=== PATIENT | female | born 1935 | race Caucasian/White ===

== ENCOUNTER 2018-03-02 11:30 | Emergency (ER) | payer MEDICARE, OTHER ==
[~2018-03-02] VITALS: Ht 149.9 cm; Wt 47.0 kg
[2018-03-02] MEDS ORDERED: OXYC-145 PO (14:32)
[2018-03-02 14:41] VITALS: BP 132/82
== END 2018-03-02 14:43 | disposition home or self-care (01) ==
LOC: ER 11:30
DX: M54.16 Radiculopathy, lumbar region (principal); Z86.73 Personal history of transient ischemic attack (TIA), and cerebral infarction without residual deficits; G89.29 Other chronic pain; Z88.0 Allergy status to penicillin; Z88.8 Allergy status to other drugs, medicaments and biological substances
CPT/HCPCS: 72100; 73502; 99284

== ENCOUNTER 2020-03-24 01:59 | Emergency (ER) | payer MEDICARE, OTHER ==
[~2020-03-24] VITALS: Ht 149.9 cm; Wt 45.8 kg
[~2020-03-24 01:59] MED LIST: OXYC-145 PO
--- NOTE | 2020-03-24 02:16 | NUR ---
PT WENT STRAIGHT TO CT FROM TRIAGE
[2020-03-24] MEDS ORDERED: TETanus/Pertussis (Acell)/Diphther VAC/PF (Tdap-Adult) 0.5ml syringe IMVAC ONE (02:30)
[2020-03-24] MEDS ORDERED: LIDOcaine 1% W/epiNEPHrine 1:200,000 10ml vial IJ ONE (02:30)
--- NOTE | 2020-03-24 03:21 | NUR ---
at bedside performing lac repair.
[2020-03-24 04:10] VITALS: BP 160/70
== END 2020-03-24 04:11 | disposition home or self-care (01) ==
LOC: ER 02:00
DX: S01.111A Laceration without foreign body of right eyelid and periocular area, initial encounter (principal); S00.12XA Contusion of left eyelid and periocular area, initial encounter; R51 Headache; Y93.89 Activity, other specified; W01.198A Fall on same level from slipping, tripping and stumbling with subsequent striking against other object, initial encounter; Y92.012 Bathroom of single-family (private) house as the place of occurrence of the external cause; G89.29 Other chronic pain; Z86.73 Personal history of transient ischemic attack (TIA), and cerebral infarction without residual deficits; Z72.89 Other problems related to lifestyle; Z88.0 Allergy status to penicillin; Z88.5 Allergy status to narcotic agent; Z79.899 Other long term (current) drug therapy
CPT/HCPCS: 12053; 70450; 72125; 90471; 90715; 99285

== ENCOUNTER 2020-11-25 11:08 | Day surgery (SDC) | payer MEDICARE, OTHER ==
[2020-11-20 13:06] LABS: ANION GAP 8 (8-16); BLOOD UREA NITROGEN 14 MG/DL (7-18); CALCIUM 9.1 MG/DL (8.5-10.1); CHLORIDE 105 MMOL/L (99-107); GLUCOSE 99 MG/DL (70-104); POTASSIUM 4.2 MMOL/L (3.5-5.1); SODIUM 140 MMOL/L (135-145); TOTAL CARBON DIOXIDE 27.5 MMOL/L (24-32); eGFR 80 ML/MIN
[2020-11-20 13:07] LABS: BASOPHILS # (AUTO) 0.1 X10'3 (0-0.2); BASOPHILS % (AUTO) 1.3 % (0-1); EOSINOPHILS # (AUTO) 0.1 X10'3 (0-0.9); HEMATOCRIT 42.4 % (35.0-45.0); HEMOGLOBIN 13.9 g/dl (12.0-16.0); LYMPHOCYTES # (AUTO) 1.8 X10'3 (1.1-4.8); LYMPHOCYTES % (AUTO) 28.6 % (21-51); MEAN CORPUSCULAR HEMOGLOBIN 29.1 PG (27.0-31.0); MEAN CORPUSCULAR HGB CONC 32.7 g/dL (33.0-36.5); MEAN CORPUSCULAR VOLUME 89.1 FL (78-98); MEAN PLATELET VOLUME 11.2 FL (7.4-10.4); MONOCYTES # (AUTO) 0.3 X10'3 (0-0.9); MONOCYTES % (AUTO) 5.4 % (2-12); NEUTROPHILS % (AUTO) 62.7 % (42-75); PLATELET COUNT 216 X10'3 (140-440); RED BLOOD COUNT 4.76 X10'6 (4.20-5.60); RED CELL DISTRIBUTION WIDTH 15.6 % (11.5-14.5); WHITE BLOOD COUNT 6.3 X10'3 (4.5-11.0)
[2020-11-20 13:10] LABS: PARTIAL THROMBOPLASTIN TIME 26 SECONDS (22-32)
[2020-11-20 14:47] LABS: LARGE PLATELETS FEW; PLATELET ESTIMATE NORMAL
[2020-11-25] VITALS (10 sets, daily range): BP systolic 131–176; BP diastolic 45–65
[~2020-11-25] VITALS: Ht 149.9 cm; Wt 47.2 kg
[2020-11-25] MEDS ORDERED: LIDOcaine/PRILOcaine 5gm cream TP ONE (11:25)
[2020-11-25] MEDS ORDERED: normal saline 1,000 ML IV SCH (11:30)
[2020-11-25] MEDS ORDERED: diphenhydrAMINE 25mg capsule PO PRN (11:30)
[2020-11-25] MEDS ORDERED: LORazepam 0.5 MG tablet PO PRN (11:30)
[2020-11-25] MEDS ORDERED: GABA300C PO (12:33)
[2020-11-25] MEDS ORDERED: BENA10TA74 PO (12:33)
[2020-11-25] MEDS ORDERED: vitamin D PO (12:33)
[2020-11-25] MEDS ORDERED: MULT-1085 PO (12:33)
[2020-11-25] MEDS ORDERED: ACET-890 PO (12:33)
[2020-11-25] MEDS ORDERED: APIX2.5T PO (12:33)
[2020-11-25] MEDS ORDERED: ATOR40TA PO (12:33)
[2020-11-25] MEDS ORDERED: verapamil 2.5 mg/ml inj IV ONE (13:01)
[2020-11-25] MEDS ORDERED: LIDOcaine 1% (10mg/ml)w/preservative injection 20ml MDV ONE (13:02)
[2020-11-25] MEDS ORDERED: iohexol 350MG/ML 100ml bottle IV ONE (13:02)
[2020-11-25] MEDS ORDERED: nitroGLYCERIN-Tridil 50MG/D5W 250 ML IV ONE (13:02)
[2020-11-25] MEDS ORDERED: heparin 1,000unit/ml 10ml vial 10 ML ONE (13:02)
[2020-11-25] MEDS ORDERED: midazolam 1 mg/ML 2ml injection ONE (13:02)
[2020-11-25] MEDS ORDERED: fentaNYL/PF 50MCG/1 ML 2ML syringe ONE (13:02)
[2020-11-25] MEDS ORDERED: HYDROcodone/acetaminophen 10/325mg tab PO PRN (14:25)
[2020-11-25] MEDS ORDERED: ondansetron/PF 4mg/2ml inj IV PRN (14:25)
[2020-11-25] MEDS ORDERED: normal saline 1000ml 1,000 ML IV SCH (14:25)
[2020-11-25] MEDS ORDERED: OXAZEpam 15mg capsule PO PRN (14:25)
[2020-11-25] MEDS ORDERED: proCHLORperazine 10 MG/2 ml inj IV PRN (14:25)
[2020-11-25] MEDS ORDERED: HYDROcodone/acetaminophen 5mg/325mg tablet PO PRN (14:25)
--- NOTE | 2020-11-25 17:15 | NUR ---
VASC BAND REMOVED, NO BLEEDING AT SITE, BRUISING NOTED, NO HEMATOMA. CLEANSED SITE LIGHTLY WITH STERILE GAUZE AND NS. SITE STABLE, DRESSED WITH STERILE 2X2 AND TEGADERM, TOPPED WITH FOLDED 4X4 AND COFLEX, PT UNDERSTANDS TOPPER CAN BE REMOVED AND ADJUSTED FOR COMFORT. TEGADERM TO BE IN REMOVED 24-48 HOURS, PRIOR TO SHOWER.
== END 2020-11-25 17:20 | disposition home or self-care (01) ==
LOC: SSTAY O 11:08
PROVIDERS: ATTEND Internal Medicine Interventional Cardiology
DX: I35.0 Nonrheumatic aortic (valve) stenosis (principal); I25.10 Atherosclerotic heart disease of native coronary artery without angina pectoris; I48.0 Paroxysmal atrial fibrillation; I10 Essential (primary) hypertension; E78.5 Hyperlipidemia, unspecified; Z86.73 Personal history of transient ischemic attack (TIA), and cerebral infarction without residual deficits; Z88.5 Allergy status to narcotic agent; Z88.0 Allergy status to penicillin; Z88.8 Allergy status to other drugs, medicaments and biological substances; Z79.899 Other long term (current) drug therapy; Z79.01 Long term (current) use of anticoagulants
CPT/HCPCS: 36415; 80048; 85025; 85610; 85730; 93005; 93454; 99152; C1769; C1894; J1644; J2001; J2250; J3010; J7030; Q0163; Q9967; 85008; A4620; J3490

== ENCOUNTER 2020-12-17 10:31 | Outpatient (CLI) | payer MEDICARE, OTHER ==
[~2020-12-17 10:31] MED LIST changes: +ACET-890 PO; +APIX2.5T PO; +ATOR40TA PO; +BENA10TA74 PO; +GABA300C PO; +MULT-1085 PO; -OXYC-145 PO; +vitamin D PO
[2020-12-17 11:05] LABS: BASOPHILS % (AUTO) 0.6 % (0-1); EOSINOPHILS # (AUTO) 0.1 X10'3 (0-0.9); EOSINOPHILS % (AUTO) 0.9 % (0-6); HEMATOCRIT 39.1 % (35.0-45.0); HEMOGLOBIN 12.9 g/dl (12.0-16.0); LYMPHOCYTES # (AUTO) 1.4 X10'3 (1.1-4.8); LYMPHOCYTES % (AUTO) 21.3 % (21-51); MEAN CORPUSCULAR HEMOGLOBIN 29.7 PG (27.0-31.0); MEAN CORPUSCULAR VOLUME 90.1 FL (78-98); MEAN PLATELET VOLUME 11.2 FL (7.4-10.4); MONOCYTES # (AUTO) 0.4 X10'3 (0-0.9); MONOCYTES % (AUTO) 6.1 % (2-12); NEUTROPHILS # (AUTO) 4.6 X10'3 (1.8-7.7); NEUTROPHILS % (AUTO) 71.1 % (42-75); PLATELET COUNT 189 X10'3 (140-440); RED BLOOD COUNT 4.34 X10'6 (4.20-5.60); RED CELL DISTRIBUTION WIDTH 15.8 % (11.5-14.5); WHITE BLOOD COUNT 6.5 X10'3 (4.5-11.0)
[2020-12-17 11:14] LABS: PARTIAL THROMBOPLASTIN TIME 26 SECONDS (22-32)
[2020-12-17 11:18] LABS: ALANINE AMINOTRANSFERASE 36 U/L (12-78); ALBUMIN 3.7 G/DL (3.4-5.0); ALBUMIN/GLOBULIN RATIO 1.2 (1.1-1.5); ALKALINE PHOSPHATASE 153 IU/L (46-116); ANION GAP 10 (8-16); ASPARTATE AMINO TRANSFERASE 32 U/L (10-37); BILIRUBIN,TOTAL 0.6 MG/DL (0.1-1.0); BLOOD UREA NITROGEN 11 MG/DL (7-18); BUN/CREATININE RATIO 14.9 (6.6-38.0); CALCIUM 8.6 MG/DL (8.5-10.1); CHLORIDE 107 MMOL/L (99-107); CREATININE 0.74 MG/DL (0.40-0.90); GLUCOSE 97 MG/DL (70-104); POTASSIUM 3.9 MMOL/L (3.5-5.1); SODIUM 144 MMOL/L (135-145); TOTAL CARBON DIOXIDE 27.4 MMOL/L (24-32); TOTAL PROTEIN 6.9 G/DL (6.4-8.2); eGFR 75 ML/MIN
[2020-12-17 11:44] LABS: LARGE PLATELETS FEW; PLATELET ESTIMATE NORMAL
[2020-12-17] MEDS ORDERED: IODIXANOL 320 MG/ML INFUS..BTL 100ML IV ONE (12:20)
[2020-12-17] MEDS ORDERED: iohexol 300 MG/1 ML 50ml polymer ONE (12:20)
[2020-12-17] MEDS ORDERED: IODIXANOL 320 MG/ML INFUS..BTL 50ML IV ONE ×2 (12:22→12:23)
== END 2020-12-17 23:59 | disposition home or self-care (01) ==
LOC: 64 CT 10:31
PROVIDERS: ATTEND Internal Medicine Cardiovascular Disease
DX: I35.8 Other nonrheumatic aortic valve disorders (principal); I25.10 Atherosclerotic heart disease of native coronary artery without angina pectoris; Z20.822 Contact with and (suspected) exposure to COVID-19
CPT/HCPCS: 36415; 71046; 71275; 74174; 80053; 85008; 85025; 85610; 85730; 94010; 94727; 94729; Q9967; U0003

== ENCOUNTER 2022-01-27 15:44 | Inpatient (IN) | payer MEDICARE, OTHER ==
[~2022-01-27] VITALS: Ht 149.9 cm; Wt 45.0 kg
[2022-01-27 16:18] LABS: BASOPHILS % (AUTO) 0.4 % (0-1); EOSINOPHILS % (AUTO) 0.2 % (0-6); LYMPHOCYTES % (AUTO) 11.2 % (21-51); MEAN CORPUSCULAR HEMOGLOBIN 27.9 PG (27.0-31.0); MEAN CORPUSCULAR HGB CONC 31.6 g/dL (33.0-36.5); MEAN CORPUSCULAR VOLUME 88.3 FL (78-98); MEAN PLATELET VOLUME 10.9 FL (7.4-10.4); MONOCYTES # (AUTO) 0.5 X10'3 (0-0.9); MONOCYTES % (AUTO) 6.1 % (2-12); NEUTROPHILS # (AUTO) 7.2 X10'3 (1.8-7.7); NEUTROPHILS % (AUTO) 82.1 % (42-75); PLATELET COUNT 215 X10'3 (140-440); RED BLOOD COUNT 2.08 X10'6 (4.20-5.60); WHITE BLOOD COUNT 8.7 X10'3 (4.5-11.0)
[2022-01-27 16:30] LABS: HEMATOCRIT 18.4 % (35.0-45.0); HEMOGLOBIN 5.8 g/dl (12.0-16.0)
[2022-01-27 16:32] LABS: ALANINE AMINOTRANSFERASE 36 U/L (12-78); ALBUMIN 3.2 G/DL (3.4-5.0); ALBUMIN/GLOBULIN RATIO 1.3 (1.1-1.5); ALKALINE PHOSPHATASE 97 IU/L (46-116); ANION GAP 6 (8-16); ASPARTATE AMINO TRANSFERASE 29 U/L (10-37); BILIRUBIN,TOTAL 0.4 MG/DL (0.1-1.0); BLOOD UREA NITROGEN 21 MG/DL (7-18); BUN/CREATININE RATIO 25.6 (6.6-38.0); CHLORIDE 111 MMOL/L (99-107); CREATININE 0.82 MG/DL (0.40-0.90); GLUCOSE 136 MG/DL (70-104); POTASSIUM 4.1 MMOL/L (3.5-5.1); SODIUM 141 MMOL/L (135-145); TOTAL CARBON DIOXIDE 24.2 MMOL/L (24-32); TOTAL PROTEIN 5.7 G/DL (6.4-8.2); eGFR 66 ML/MIN
[2022-01-27] MEDS: pantoprazole 40MG/NS 100ML BAG 100 ML IV SCH ×2 (17:00→21:20)
[2022-01-27] MEDS ORDERED: potassium CL 10mEq/100ml bag 100 ML IV PRN (17:05)
[2022-01-27] MEDS ORDERED: POTASSIUM BICARB 20meq eff tab 20 MEQ TABLET.EFF PO PRN ×2 (17:05)
[2022-01-27] MEDS ORDERED: magnesium hydroxide 30ml (MOM) UD suspension PO PRN (17:05)
[2022-01-27] MEDS ORDERED: ondansetron/PF 4mg/2ml inj IV PRN (17:05)
[2022-01-27] MEDS ORDERED: magnesium 2GM in 50ml NS 50 ML IV PRN (17:05)
[2022-01-27] MEDS ORDERED: magnesium Cl slow-release 64mg tablet PO PRN (17:05)
[2022-01-27] MEDS ORDERED: acetaminophen 325mg tablet PO PRN (17:05)
[2022-01-27] MEDS ORDERED: mag hydrox/Alum hydrox/simeth 30ml oral suspension PO PRN (17:05)
[2022-01-27] MEDS ORDERED: magnesium 4gm in 100ml NS 100 ML IV PRN (17:05)
[2022-01-27] MEDS ORDERED: nitroGLYCERIN 0.4mg SUBLingual tab SL ONE (17:10)
--- NOTE | 2022-01-27 17:10 | NUR ---
DR SAM IN TO ASSESS PATIENT AT THIS TIME. PATIENT MOVED TO LAY ON LEFT SIDE FOR RECTAL EXAM, PATIENT C/O SUDDEN SHORTNESS OF BREATH, CP AND DIAPHORECTIC. PATIENT PLACED ON O2 2L NC, HR 140'S, MD ORDERS RECEIVED.
[2022-01-27 17:15] VITALS: BP 144/82
[2022-01-27] MEDS ORDERED: metoprolol tartrate 1mg/ml inj IV ONE (17:15)
[2022-01-27] MEDS ORDERED: morphine 2 MG/ML inj. syringe IV PRN (17:15)
[2022-01-27 17:21] LABS: MAGNESIUM 1.9 MG/DL (1.5-2.4)
[2022-01-27 17:33] VITALS: BP 147/56
--- NOTE | 2022-01-27 17:53 | NUR ---
REPORT GIVEN TO [facility], PER RN DR ROMERO TO PERFORM EGD TOMORROW AT 0730. ALL QUESTIONS AND CONCERNS ADDRESSED.
[2022-01-27] MEDS: K and/or MAG REPLACEMENT MC SCH (18:41)
[2022-01-27] MEDS: docusate sod 100mg capsule PO SCH (18:42)
[2022-01-27] MEDS ORDERED: vitamin D PO (18:55)
[2022-01-27 19:19] VITALS: BP 150/61
[2022-01-27 19:39] VITALS: BP 148/75
[2022-01-27 20:39] VITALS: BP 158/72
[2022-01-27 23:41] LABS: OCCULT BLOOD STOOL POSITIVE (Neg)
[2022-01-28] MEDS: pantoprazole 40MG/NS 100ML BAG 100 ML IV SCH ×2 (02:18→09:21)
[2022-01-28 03:08] LABS: BASOPHILS % (AUTO) 0.4 % (0-1); EOSINOPHILS # (AUTO) 0.1 X10'3 (0-0.9); EOSINOPHILS % (AUTO) 0.6 % (0-6); HEMATOCRIT 31.6 % (35.0-45.0); HEMOGLOBIN 10.2 g/dl (12.0-16.0); LYMPHOCYTES # (AUTO) 1.7 X10'3 (1.1-4.8); LYMPHOCYTES % (AUTO) 15.2 % (21-51); MEAN CORPUSCULAR HEMOGLOBIN 28.1 PG (27.0-31.0); MEAN CORPUSCULAR HGB CONC 32.3 g/dL (33.0-36.5); MEAN CORPUSCULAR VOLUME 86.9 FL (78-98); MONOCYTES # (AUTO) 0.7 X10'3 (0-0.9); MONOCYTES % (AUTO) 6.8 % (2-12); NEUTROPHILS # (AUTO) 8.4 X10'3 (1.8-7.7); PLATELET COUNT 191 X10'3 (140-440); RED BLOOD COUNT 3.64 X10'6 (4.20-5.60); WHITE BLOOD COUNT 10.9 X10'3 (4.5-11.0)
[2022-01-28 03:15] LABS: ALBUMIN 3.4 G/DL (3.4-5.0); ANION GAP 9 (8-16); BLOOD UREA NITROGEN 20 MG/DL (7-18); BUN/CREATININE RATIO 28.2 (6.6-38.0); CALCIUM 8.3 MG/DL (8.5-10.1); CHLORIDE 111 MMOL/L (99-107); CREATININE 0.71 MG/DL (0.40-0.90); GLUCOSE 107 MG/DL (70-104); MAGNESIUM 2.1 MG/DL (1.5-2.4); SODIUM 143 MMOL/L (135-145); TOTAL CARBON DIOXIDE 23.2 MMOL/L (24-32); eGFR 78 ML/MIN
[2022-01-28 04:06] LABS: PLATELET ESTIMATE NORMAL
[2022-01-28 04:07] LABS: LARGE PLATELETS FEW
--- NOTE | 2022-01-28 07:15 | NUR ---
TO GI LAB SENT THE PROTONIX WITH PATIENT .
[2022-01-28 07:20] VITALS: BP 141/59
[2022-01-28 08:03] VITALS: BP 185/73
[2022-01-28 08:13] VITALS: BP 158/78
[2022-01-28 08:23] VITALS: BP 155/82
[2022-01-28 08:33] VITALS: BP 149/68
[2022-01-28] MEDS ORDERED: MIDAZolam 1 MG/ML 5ML VIAL ONE (08:58)
[2022-01-28] MEDS ORDERED: fentaNYL/PF 50MCG/1 ML 2ML syringe ONE (08:58)
[2022-01-28] MEDS: docusate sod 100mg capsule PO SCH ×2 (09:20→20:00)
[2022-01-28] MEDS: K and/or MAG REPLACEMENT MC SCH ×2 (09:20→20:00)
--- NOTE | 2022-01-28 10:03 | NUR ---
DR VINES AT BEDSIDE.
[2022-01-28] MEDS ORDERED: PEG 3350/Na sulf,bicarb,Cl/KCl oral sol 4 liter bottle PO ONE (10:15)
[2022-01-28] MEDS ORDERED: furosemide 10 MG/1 ML 10ml inj IV ONE (10:15)
--- NOTE | 2022-01-28 11:51 | NUR ---
paged dr malik at this time to get order for downgrading the pt to short staff.
--- NOTE | 2022-01-28 11:57 | NUR ---
okayed to downgrade the pt ,notified er charge claudia conner and communicated with socorro fenton . pt will be downgraded from pcu to orthro neuro on tele monitor.
[2022-01-28] MEDS ORDERED: gabapentin 300mg capsule PO SCH (20:00)
--- NOTE | 2022-01-28 21:40 | NUR ---
Received report from Lorin LUCERO from ED. Patient came up via wheelchair. Patient able to transfer to bed stand by, bed placed in locked and low position, call light within reach.
[2022-01-28 22:00] VITALS: BP 159/58
--- NOTE | 2022-01-28 23:09 | NUR ---
Per patient she drank all the golytly prep down in ED. I asked about stool color and the reasoning we do the prep. Patient states, "My last BM was clear colored." Patient has not had a stool since arrival on the floor.
[2022-01-29] VITALS (8 sets, daily range): BP systolic 138–147; BP diastolic 40–83
--- NOTE | 2022-01-29 06:30 | NUR ---
Problems reprioritized. Patient report given, questions answered & plan of care reviewed with Radha LUCERO.
--- NOTE | 2022-01-29 06:38 | NUR ---
Patient in room ORTHO 4023. I have received report from Tish L[facility] and had the opportunity to ask questions and assume patient care.
[2022-01-29 06:39] LABS: BASOPHILS % (AUTO) 0.3 % (0-1); EOSINOPHILS # (AUTO) 0.1 X10'3 (0-0.9); HEMATOCRIT 30.2 % (35.0-45.0); HEMOGLOBIN 9.9 g/dl (12.0-16.0); LYMPHOCYTES % (AUTO) 12.8 % (21-51); MEAN CORPUSCULAR HEMOGLOBIN 28.2 PG (27.0-31.0); MEAN CORPUSCULAR HGB CONC 32.9 g/dL (33.0-36.5); MEAN CORPUSCULAR VOLUME 85.6 FL (78-98); MEAN PLATELET VOLUME 11.1 FL (7.4-10.4); MONOCYTES # (AUTO) 0.7 X10'3 (0-0.9); MONOCYTES % (AUTO) 8.7 % (2-12); NEUTROPHILS # (AUTO) 5.8 X10'3 (1.8-7.7); NEUTROPHILS % (AUTO) 77.2 % (42-75); PLATELET COUNT 192 X10'3 (140-440); RED BLOOD COUNT 3.53 X10'6 (4.20-5.60); RED CELL DISTRIBUTION WIDTH 14.8 % (11.5-14.5); WHITE BLOOD COUNT 7.5 X10'3 (4.5-11.0)
[2022-01-29 06:55] LABS: ALBUMIN 2.9 G/DL (3.4-5.0); ANION GAP 12 (8-16); BLOOD UREA NITROGEN 12 MG/DL (7-18); BUN/CREATININE RATIO 17.6 (6.6-38.0); CALCIUM 7.9 MG/DL (8.5-10.1); CHLORIDE 108 MMOL/L (99-107); CREATININE 0.68 MG/DL (0.40-0.90); GLUCOSE 93 MG/DL (70-104); MAGNESIUM 1.9 MG/DL (1.5-2.4); POTASSIUM 3.5 MMOL/L (3.5-5.1); SODIUM 144 MMOL/L (135-145); TOTAL CARBON DIOXIDE 24.1 MMOL/L (24-32); eGFR 82 ML/MIN
[2022-01-29] MEDS: K and/or MAG REPLACEMENT MC SCH (07:40)
[2022-01-29] MEDS: docusate sod 100mg capsule PO SCH (07:59)
[2022-01-29] MEDS ORDERED: atorvastatin 20mg tablet PO SCH (08:00)
[2022-01-29] MEDS ORDERED: multivitamins, therapeutics tablet PO SCH (08:00)
[2022-01-29] MEDS ORDERED: diphenhydrAMINE 50 mg/ml inj ONE (11:01)
--- NOTE | 2022-01-29 15:19 | NUR ---
PAGER ID: [phone] MESSAGE: Radha [phone] re: Rosmery Hi in [id number]. Pt is very hungry. Can she get a diet ordered?
[2022-01-29] MEDS ORDERED: FURO-150 PO (16:49)
--- NOTE | 2022-01-29 16:49 | NUR ---
Explained all discharge and medication instructions to pt. Pt verbalized understanding. Both piv's d/c'd, tips intact. Escorted pt to personal vehicle via wheelchair.
== END 2022-01-29 16:45 | disposition home or self-care (01) | DRG 377 ==
LOC: ER 15:44 → ED HOLD 17:07 → ORTHO 4S 01-28 22:04
PROVIDERS: ADMIT Family Medicine; ATTEND Family Medicine
PROC: 30233N1 Transfusion of Nonautologous Red Blood Cells into Peripheral Vein, Percutaneous Approach (ICD-10-PCS; 2022-01-27)
PROC: 0DB98ZX Excision of Duodenum, Via Natural or Artificial Opening Endoscopic, Diagnostic (ICD-10-PCS; principal; 2022-01-28)
PROC: 0DB78ZX Excision of Stomach, Pylorus, Via Natural or Artificial Opening Endoscopic, Diagnostic (ICD-10-PCS; 2022-01-28)
DX: K92.1 Melena (principal); I50.33 Acute on chronic diastolic (congestive) heart failure; I21.A1 Myocardial infarction type 2; D62 Acute posthemorrhagic anemia; E78.5 Hyperlipidemia, unspecified; G89.4 Chronic pain syndrome; I11.0 Hypertensive heart disease with heart failure; I20.9 Angina pectoris, unspecified; K31.89 Other diseases of stomach and duodenum; I48.0 Paroxysmal atrial fibrillation; I27.20 Pulmonary hypertension, unspecified; I35.0 Nonrheumatic aortic (valve) stenosis; G62.9 Polyneuropathy, unspecified; Z79.899 Other long term (current) drug therapy; Z86.73 Personal history of transient ischemic attack (TIA), and cerebral infarction without residual deficits; Z90.710 Acquired absence of both cervix and uterus; Z88.0 Allergy status to penicillin; Z88.5 Allergy status to narcotic agent
CPT/HCPCS: 36415; 36430; 43239; 45378; 71045; 80048; 80053; 82272; 83735; 83880; 84484; 85008; 85025; 86885; 86900; 86901; 86920; 87081; 93306; 96365; 99152; 99153; 99285; A4620; C9113; G0378; J1200; J1940; J2250; J2270; J3010; J7030; P9016

== ENCOUNTER 2022-03-22 14:19 | Inpatient (IN) | payer MEDICARE, OTHER ==
[2022-03-18 09:58] LABS: BASOPHILS % (AUTO) 0.8 % (0-1); EOSINOPHILS # (AUTO) 0.1 X10'3 (0-0.9); EOSINOPHILS % (AUTO) 2.4 % (0-6); HEMATOCRIT 34.1 % (35.0-45.0); HEMOGLOBIN 11.1 g/dl (12.0-16.0); LYMPHOCYTES # (AUTO) 1.3 X10'3 (1.1-4.8); LYMPHOCYTES % (AUTO) 23.6 % (21-51); MEAN CORPUSCULAR HEMOGLOBIN 26.7 PG (27.0-31.0); MEAN CORPUSCULAR HGB CONC 32.4 g/dL (33.0-36.5); MEAN CORPUSCULAR VOLUME 82.4 FL (78-98); MEAN PLATELET VOLUME 10.5 FL (7.4-10.4); MONOCYTES # (AUTO) 0.3 X10'3 (0-0.9); MONOCYTES % (AUTO) 4.6 % (2-12); NEUTROPHILS # (AUTO) 3.7 X10'3 (1.8-7.7); NEUTROPHILS % (AUTO) 68.6 % (42-75); PLATELET COUNT 177 X10'3 (140-440); RED BLOOD COUNT 4.14 X10'6 (4.20-5.60); RED CELL DISTRIBUTION WIDTH 17.6 % (11.5-14.5); WHITE BLOOD COUNT 5.5 X10'3 (4.5-11.0)
[2022-03-18 10:07] LABS: APTT 26 SECONDS (22-32)
[2022-03-18 10:08] LABS: ALBUMIN 3.7 G/DL (3.4-5.0); ANION GAP 9 (8-16); BLOOD UREA NITROGEN 19 MG/DL (7-18); BUN/CREATININE RATIO 30.2 (6.6-38.0); CALCIUM 8.2 MG/DL (8.5-10.1); CHLORIDE 108 MMOL/L (99-107); CHOL/HDL RATIO 2.3 (0.00-4.99); CHOLESTEROL 157 MG/DL (0-200); CREATININE 0.63 MG/DL (0.40-0.90); GLUCOSE 92 MG/DL (70-104); HDL CHOLESTEROL 69 MG/DL (35-60); LDL CHOLESTEROL 70 MG/DL (50-100); SODIUM 144 MMOL/L (135-145); TOTAL CARBON DIOXIDE 26.7 MMOL/L (24-32); TRIGLYCERIDES 63 MG/DL (20-135); eGFR 90 ML/MIN
[2022-03-22] VITALS (7 sets, daily range): BP systolic 116–155; BP diastolic 47–77
[~2022-03-22] VITALS: Ht 149.9 cm; Wt 44.6 kg
[~2022-03-22 14:19] MED LIST changes: -APIX2.5T PO
[2022-03-22] MEDS ORDERED: UBID100C16 PO (15:11)
[2022-03-22] MEDS ORDERED: MAGN200T PO (15:11)
[2022-03-22] MEDS ORDERED: APIX2.5T PO (15:11)
[2022-03-22] MEDS ORDERED: CHOL100025 PO (15:11)
[2022-03-22] MEDS ORDERED: NITR0.4T48 SL (15:11)
[2022-03-22] MEDS ORDERED: IRON15TA3 PO (15:20)
[2022-03-22] MEDS ORDERED: LORazepam 0.5 MG tablet PO PRN (16:30)
[2022-03-22] MEDS ORDERED: diphenhydrAMINE 25mg capsule PO PRN (16:30)
[2022-03-22] MEDS ORDERED: LIDOcaine 1% 30ml preserv. free vial ONE ×2 (16:36→19:21)
[2022-03-22] MEDS ORDERED: verapamil 2.5 mg/ml inj IV ONE (16:36)
[2022-03-22] MEDS ORDERED: heparin 1,000unit/ml 10ml vial 10 ML ONE (16:36)
[2022-03-22] MEDS ORDERED: midazolam 1 mg/ML 2ml injection ONE ×2 (16:36→20:16)
[2022-03-22] MEDS ORDERED: nitroGLYCERIN-Tridil 50MG/D5W 250 ML IV ONE (16:36)
[2022-03-22] MEDS ORDERED: iohexol 350MG/ML 100ml bottle IV ONE (16:36)
[2022-03-22] MEDS ORDERED: fentaNYL/PF 50MCG/1 ML 2ML syringe ONE (16:36)
[2022-03-22] MEDS ORDERED: LIDOcaine 1% (10mg/ml) 2ml vial ONE (16:43)
[2022-03-22] MEDS: normal saline 1000ml 1,000 ML IV SCH ×2 (16:50→23:39)
[2022-03-22] MEDS ORDERED: Thrombin (Bovine) 5,000 unit vial TP ONE (20:10)
[2022-03-22 20:21] LABS: HEMATOCRIT 27.4 % (35.0-45.0); MEAN CORPUSCULAR HEMOGLOBIN 26.9 PG (27.0-31.0); MEAN CORPUSCULAR VOLUME 81.4 FL (78-98); PLATELET COUNT 204 X10'3 (140-440); RED BLOOD COUNT 3.36 X10'6 (4.20-5.60); RED CELL DISTRIBUTION WIDTH 17.5 % (11.5-14.5); WHITE BLOOD COUNT 8.9 X10'3 (4.5-11.0)
[2022-03-22 20:47] LABS: ABG HCO3 17.6 mmol/L (22.0-26.0); ABG PCO2 (T) 31.6 mmHg (32.0-45.0); ABG PO2 (T) 189.8 mmHg (75.0-100.0); FCOHb 0.3 % (0.0-3.9); FMetHb 0.5 % (0.0-1.5); FO2Hb 98.2 % (94-97); PEEP 5 cm H2O; RESPIRATORY RATE 16 b/min; TIDAL VOLUME 350 mL; TOTAL HEMOGLOBIN 8.2 G/dl (12.0-16.0)
[2022-03-22] MEDS ORDERED: etomidate 2mg/ml inj. ONE (21:00)
--- NOTE | 2022-03-22 22:15 | NUR ---
Received patient to room 2011 from Vice President Of Development see next note
[2022-03-22] MEDS ORDERED: acetaminophen 325mg tablet PO PRN ×2 (22:50)
[2022-03-22] MEDS ORDERED: magnesium 2GM in 50ml NS 50 ML IV PRN (22:50)
[2022-03-22] MEDS ORDERED: magnesium 4gm in 100ml NS 100 ML IV PRN (22:50)
[2022-03-22] MEDS ORDERED: ondansetron/PF 4mg/2ml inj IV PRN (22:50)
[2022-03-22] MEDS ORDERED: magnesium hydroxide 30ml (MOM) UD suspension PO PRN (22:50)
[2022-03-22] MEDS: FENTANYL-0.9 % NACL/PF 100 ML IV PRN (23:41)
[2022-03-22] MEDS: propofol 1000mg/100ml bottle 100 ML IV SCH (23:41)
[2022-03-22] MEDS: pantoprazole 40MG/NS 100ML BAG 100 ML IV SCH (23:55)
[2022-03-23] VITALS (36 sets, daily range): BP systolic 101–149; BP diastolic 30–77
[2022-03-23] MEDS ORDERED: nitroGLYCERIN-Tridil 50MG/D5W 250 ML IV PRN (00:05)
[2022-03-23] MEDS ORDERED: UBID100C16 PO (00:09)
[2022-03-23] MEDS ORDERED: nitroGLYCERIN 0.4mg SUBLingual tab SL PRN (00:10)
[2022-03-23 02:52] LABS: BASOPHILS # (AUTO) 0.1 X10'3 (0-0.2); BASOPHILS % (AUTO) 0.8 % (0-1); EOSINOPHILS # (AUTO) 0.1 X10'3 (0-0.9); EOSINOPHILS % (AUTO) 1.1 % (0-6); HEMATOCRIT 26.2 % (35.0-45.0); HEMOGLOBIN 9.1 g/dl (12.0-16.0); LYMPHOCYTES # (AUTO) 1.3 X10'3 (1.1-4.8); MEAN CORPUSCULAR HEMOGLOBIN 28.1 PG (27.0-31.0); MEAN CORPUSCULAR HGB CONC 34.6 g/dL (33.0-36.5); MEAN CORPUSCULAR VOLUME 81.1 FL (78-98); MEAN PLATELET VOLUME 10.8 FL (7.4-10.4); MONOCYTES # (AUTO) 0.3 X10'3 (0-0.9); MONOCYTES % (AUTO) 4.3 % (2-12); NEUTROPHILS # (AUTO) 6.3 X10'3 (1.8-7.7); NEUTROPHILS % (AUTO) 77.8 % (42-75); PLATELET COUNT 105 X10'3 (140-440); RED BLOOD COUNT 3.24 X10'6 (4.20-5.60); RED CELL DISTRIBUTION WIDTH 15.2 % (11.5-14.5); WHITE BLOOD COUNT 8.1 X10'3 (4.5-11.0)
--- NOTE | 2022-03-23 03:02 | NUR ---
Received to room 2011, accompanied by Water Conservationist RN and Tech . Placed on ventilator, to patient monitor, arterial line and PA line pressure zeroed & monitored. . Benitez cath to gravity drainage. Dressings are dry and intact. See assessment record. All vasoactive drugs are infusing via central line. Orders received from Dr. Garcia Addendum: 03/23/22 at 0305 by Sher Fernandez RN At 2215 03/22/22
[2022-03-23 03:04] LABS: APTT 24 SECONDS (22-32)
[2022-03-23 03:09] LABS: ALANINE AMINOTRANSFERASE 23 U/L (12-78); ALBUMIN 2.5 G/DL (3.4-5.0); ALKALINE PHOSPHATASE 70 IU/L (46-116); ANION GAP 7 (8-16); ASPARTATE AMINO TRANSFERASE 27 U/L (10-37); BILIRUBIN,TOTAL 1.1 MG/DL (0.1-1.0); BLOOD UREA NITROGEN 22 MG/DL (7-18); BUN/CREATININE RATIO 39.3 (6.6-38.0); CHLORIDE 112 MMOL/L (99-107); CREATININE 0.56 MG/DL (0.40-0.90); GLUCOSE 90 MG/DL (70-104); POTASSIUM 3.5 MMOL/L (3.5-5.1); SODIUM 141 MMOL/L (135-145); TOTAL CARBON DIOXIDE 22.3 MMOL/L (24-32); TOTAL PROTEIN 4.9 G/DL (6.4-8.2); eGFR > 90 ML/MIN
[2022-03-23 03:36] LABS: ABG BASE EXCESS -1.7 mmol/L (-2.0-2.0); ABG HCO3 21.5 mmol/L (22.0-26.0); ABG OXYGEN SATURATION 98.2 % (94-97); ABG PCO2 (T) 30.1 mmHg (32.0-45.0); ABG PO2 (T) 123.6 mmHg (75.0-100.0); FCOHb 0.3 % (0.0-3.9); FMetHb 0.2 % (0.0-1.5); FO2Hb 97.7 % (94-97); PATIENT TEMPERATURE 36.7; PEEP 5 cm H2O; RESPIRATORY RATE 16 b/min; TIDAL VOLUME 350 mL; TOTAL HEMOGLOBIN 9.6 G/dl (12.0-16.0)
[2022-03-23 03:41] LABS: CHOL/HDL RATIO 2.1 (0.00-4.99); CHOLESTEROL 102 MG/DL (0-200); HDL CHOLESTEROL 49 MG/DL (35-60); LDL CHOLESTEROL 45 MG/DL (50-100); MAGNESIUM 1.7 MG/DL (1.5-2.4); TRIGLYCERIDES 45 MG/DL (20-135)
--- NOTE | 2022-03-23 04:00 | NUR ---
AM labs resulted and are stable at this time, AM ABG reviewed and Ventilators settings adjusted accordingly, patient repositioned q 2hrs and tolerates well, vital signs stable at this time.
[2022-03-23] MEDS: FENTANYL-0.9 % NACL/PF 100 ML IV PRN ×2 (04:23→12:06)
--- NOTE | 2022-03-23 05:52 | NUR ---
Problems reprioritized. Patient report given, questions answered & plan of care reviewed with oncoming sales lead generator.
--- NOTE | 2022-03-23 06:00 | NUR ---
Patient in room CICU 2011. I have received report from JAZMINE Olivarez and had the opportunity to ask questions and assume patient care.
[2022-03-23] MEDS: propofol 1000mg/100ml bottle 100 ML IV SCH ×2 (07:28→20:21)
[2022-03-23] MEDS ORDERED: magnesium hydroxide 30ml (MOM) UD suspension OGT PRN (07:47)
[2022-03-23] MEDS ORDERED: acetaminophen 325mg tablet OGT PRN (07:48)
[2022-03-23] MEDS ORDERED: multivitamins, therapeutics tablet PO SCH (08:00)
[2022-03-23] MEDS ORDERED: lisinopril 10 MG tablet PO SCH (08:00)
[2022-03-23] MEDS ORDERED: atorvastatin 20mg tablet PO SCH (08:00)
[2022-03-23] MEDS ORDERED: cholecalciferol (vitamin D3) 1,000 unit (25mcg) tablet PO SCH (08:00)
[2022-03-23] MEDS ORDERED: magnesium oxide 400mg tablet PO SCH (08:00)
[2022-03-23] MEDS ORDERED: gabapentin 300mg capsule PO SCH (08:00)
[2022-03-23 08:28] LABS: HEMOGLOBIN 8.9 g/dl (12.0-16.0); MEAN CORPUSCULAR HEMOGLOBIN 27.7 PG (27.0-31.0); MEAN CORPUSCULAR HGB CONC 34.1 g/dL (33.0-36.5); MEAN PLATELET VOLUME 11.1 FL (7.4-10.4); PLATELET COUNT 99 X10'3 (140-440); RED BLOOD COUNT 3.21 X10'6 (4.20-5.60); RED CELL DISTRIBUTION WIDTH 15.5 % (11.5-14.5); WHITE BLOOD COUNT 5.8 X10'3 (4.5-11.0)
--- NOTE | 2022-03-23 08:28 | NUR ---
Patient's son Zenon bedside, gave an update on the patient.
--- NOTE | 2022-03-23 08:40 | NUR ---
Dr. Shaw rounded on patient. Informed of the patient's PA site slightly puffy, he said to address it with Dr. Sharp when he comes in. He was also informed of the patient temp of 38.4. He ordered blood cultures to be drawn peripherally and to start the patient on Zosyn. Patient has a penicillin allergy so he changed the order to Meropenem.
[2022-03-23] MEDS: pantoprazole 40MG/NS 100ML BAG 100 ML IV SCH ×2 (08:57→20:07)
[2022-03-23] MEDS: gabapentin 300mg capsule OGT SCH (08:58)
[2022-03-23] MEDS: magnesium oxide 400mg tablet OGT SCH (08:58)
[2022-03-23] MEDS: atorvastatin 20mg tablet OGT SCH (08:58)
[2022-03-23] MEDS: cholecalciferol (vitamin D3) 1,000 unit (25mcg) tablet OGT SCH (08:58)
[2022-03-23] MEDS: MULTIVIT-MIN/FERROUS GLUCONATE 9 MG/15 ML LIQUID OGT SCH (08:58)
[2022-03-23] MEDS: lisinopril 10 MG tablet OGT SCH (08:58)
[2022-03-23] MEDS: acetaminophen 325mg tablet OGT PRN ×2 (09:09→16:22)
--- NOTE | 2022-03-23 10:50 | NUR ---
Rounds note: Dr. Shaw ordered for a dose of Vancomycin to be given to patient, to trial patient on spontaneous and to redraw a hemogram at 1400.
--- NOTE | 2022-03-23 10:52 | NUR ---
Initial: Limited physician documentation at this time, all info was obtained from critical care rounds. Pt was reportedly getting cardiac cath for clearance for TAVR when the pulmonary artery was perforated. Pt now intubated and will likely require lung resection and TAVR per RN. Pt also sedated, Propofol running at 5.4ml/hr (142kcals). Pt w/ OGT, will place recs below for when pt to start TF. [facility] 03/22. Will continue to monitor. Recs: 1) IF TF, Continuous TF using Vital AF at 45ml/hr goal to provide 1080ml volume, 1296kcals, 81g protein, and 876ml free water; monitor Propofol rate 2) IF TF, Additional water flush 100ml Q4H; monitor serum Na 3) IF TF, PALB Q / 4) Routine bowel care 5) Daily wts Addendum: 03/23/22 at [address] Amended: Links added.
[2022-03-23] MEDS: normal saline 1000ml 1,000 ML IV SCH ×2 (11:09→23:00)
[2022-03-23] MEDS ORDERED: VANCOMYCIN 750MG IV in NS 250 ML IV SCH (12:00)
[2022-03-23] MEDS ORDERED: piperacillin/tazo 3.375gm/50ml 50 ML IV SCH (14:00)
[2022-03-23] MEDS: meropenem inj 500 MG in normal saline 100ml IV soln 100 ML IV SCH ×2 (14:27→20:07)
[2022-03-23 14:34] LABS: BASOPHILS % (AUTO) 0.5 % (0-1); EOSINOPHILS # (AUTO) 0.1 X10'3 (0-0.9); EOSINOPHILS % (AUTO) 1.8 % (0-6); HEMATOCRIT 26.6 % (35.0-45.0); LYMPHOCYTES % (AUTO) 15.5 % (21-51); MEAN CORPUSCULAR HEMOGLOBIN 27.4 PG (27.0-31.0); MEAN CORPUSCULAR HGB CONC 33.8 g/dL (33.0-36.5); MEAN CORPUSCULAR VOLUME 80.9 FL (78-98); MEAN PLATELET VOLUME 10.9 FL (7.4-10.4); MONOCYTES # (AUTO) 0.6 X10'3 (0-0.9); MONOCYTES % (AUTO) 8.9 % (2-12); NEUTROPHILS # (AUTO) 4.6 X10'3 (1.8-7.7); NEUTROPHILS % (AUTO) 73.3 % (42-75); PLATELET COUNT 87 X10'3 (140-440); RED BLOOD COUNT 3.29 X10'6 (4.20-5.60); RED CELL DISTRIBUTION WIDTH 15.4 % (11.5-14.5); WHITE BLOOD COUNT 6.3 X10'3 (4.5-11.0)
[2022-03-23 14:47] LABS: LARGE PLATELETS FEW; PLATELET ESTIMATE DECREASED
--- NOTE | 2022-03-23 14:50 | NUR ---
Dr. Shaw informed of patient's plt count of 87. He does not want to transfuse at this time however, would like a DIC panel sent.
[2022-03-23 15:38] LABS: PLATELET COUNT 85 X10'3 (140-440)
[2022-03-23 15:42] LABS: APTT 27 SECONDS (22-32); D-DIMER 5.13 MG/L FEU (0-0.50)
--- NOTE | 2022-03-23 16:00 | NUR ---
Dr. Sharp rounded on patient and stated to leave the patient intubated for another day and that he would call Dr. Casanova to ask if he would do the patient's TAVR while she is here in the hospital. We should have an answer on the plan for patient by tomorrow afternoon. Dr. Sharp informed of the patient's plts as well and agreed that a transfusion was not needed at this time.
--- NOTE | 2022-03-23 16:45 | NUR ---
Dr. Shaw informed of the patient DIC panel, no new orders and no plt transfusion.
--- NOTE | 2022-03-23 17:54 | NUR ---
Dr. Shaw bedside and updated the patient's family on the plan of care.
--- NOTE | 2022-03-23 18:10 | NUR ---
Problems reprioritized. Patient report given, questions answered & plan of care reviewed with JAZMINE Olivarez.
--- NOTE | 2022-03-23 18:21 | NUR ---
Patient in room CICU 2011. I have received report from Brendon LUCERO and had the opportunity to ask questions and assume patient care.
--- NOTE | 2022-03-23 21:00 | NUR ---
[id number] resting in Semi-Fowlers position, turn q 2 hrs, bedbath and oral care done and tolerated well
[2022-03-24] VITALS (28 sets, daily range): BP systolic 12–172; BP diastolic 35–87
[2022-03-24] MEDS: meropenem inj 500 MG in normal saline 100ml IV soln 100 ML IV SCH ×4 (01:34→20:57)
[2022-03-24 03:13] LABS: BASOPHILS % (AUTO) 0.6 % (0-1); EOSINOPHILS # (AUTO) 0.1 X10'3 (0-0.9); EOSINOPHILS % (AUTO) 2.4 % (0-6); HEMATOCRIT 27.1 % (35.0-45.0); HEMOGLOBIN 9.1 g/dl (12.0-16.0); LYMPHOCYTES # (AUTO) 0.8 X10'3 (1.1-4.8); LYMPHOCYTES % (AUTO) 13.6 % (21-51); MEAN CORPUSCULAR HEMOGLOBIN 27.8 PG (27.0-31.0); MEAN CORPUSCULAR HGB CONC 33.8 g/dL (33.0-36.5); MEAN CORPUSCULAR VOLUME 82.2 FL (78-98); MONOCYTES # (AUTO) 0.4 X10'3 (0-0.9); MONOCYTES % (AUTO) 6.6 % (2-12); NEUTROPHILS # (AUTO) 4.7 X10'3 (1.8-7.7); NEUTROPHILS % (AUTO) 76.8 % (42-75); PLATELET COUNT 81 X10'3 (140-440); RED BLOOD COUNT 3.29 X10'6 (4.20-5.60); RED CELL DISTRIBUTION WIDTH 15.9 % (11.5-14.5); WHITE BLOOD COUNT 6.2 X10'3 (4.5-11.0)
[2022-03-24 03:21] LABS: APTT 30 SECONDS (22-32)
[2022-03-24 03:30] LABS: ALANINE AMINOTRANSFERASE 13 U/L (12-78); ALBUMIN 2.1 G/DL (3.4-5.0); ALBUMIN/GLOBULIN RATIO 0.8 (1.1-1.5); ALKALINE PHOSPHATASE 60 IU/L (46-116); ANION GAP 7 (8-16); ASPARTATE AMINO TRANSFERASE 24 U/L (10-37); BILIRUBIN,TOTAL 0.7 MG/DL (0.1-1.0); BLOOD UREA NITROGEN 14 MG/DL (7-18); BUN/CREATININE RATIO 26.4 (6.6-38.0); CALCIUM 7.2 MG/DL (8.5-10.1); CHLORIDE 116 MMOL/L (99-107); CREATININE 0.53 MG/DL (0.40-0.90); GLUCOSE 81 MG/DL (70-104); POTASSIUM 3.3 MMOL/L (3.5-5.1); SODIUM 144 MMOL/L (135-145); TOTAL PROTEIN 4.6 G/DL (6.4-8.2); eGFR > 90 ML/MIN
[2022-03-24 03:33] LABS: ABG BASE EXCESS -6.4 mmol/L (-2.0-2.0); ABG HCO3 18.2 mmol/L (22.0-26.0); ABG OXYGEN SATURATION 97.9 % (94-97); ABG PCO2 (T) 33.9 mmHg (32.0-45.0); ABG PO2 (T) 119.8 mmHg (75.0-100.0); FCOHb 0.3 % (0.0-3.9); FMetHb 0.2 % (0.0-1.5); FO2Hb 97.4 % (94-97); PATIENT TEMPERATURE 37.8; PEEP 5 cm H2O; RESPIRATORY RATE 14 b/min; TIDAL VOLUME 350 mL; TOTAL HEMOGLOBIN 10.5 G/dl (12.0-16.0)
[2022-03-24] MEDS: potassium Cl 20mEq/100mL bag 100 ML IV PRN ×2 (03:54→04:51)
--- NOTE | 2022-03-24 04:00 | NUR ---
AM labs discussed with Alicia POWERHOUSE OPERATOR and orders received to change IV fluid of NS to D5NS. AM ABG normal , appropriate vent changes made by RT
[2022-03-24] MEDS: dextrose 5%-normal saline 1,000 ML IV SCH ×2 (04:15→14:10)
[2022-03-24 04:17] LABS: MAGNESIUM 1.9 MG/DL (1.5-2.4)
[2022-03-24] MEDS: fentaNYL/PF inj 2,500 MCG in normal saline 250ml IV soln 200 ML IV SCH (05:46)
--- NOTE | 2022-03-24 06:00 | NUR ---
Patient in room CICU 2011. I have received report from JAZMINE Olivarez and had the opportunity to ask questions and assume patient care.
--- NOTE | 2022-03-24 06:10 | NUR ---
Problems reprioritized. Patient report given, questions answered & plan of care reviewed with Brendon LUCERO.
[2022-03-24] MEDS: cholecalciferol (vitamin D3) 1,000 unit (25mcg) tablet OGT SCH (07:48)
[2022-03-24] MEDS: pantoprazole 40MG/NS 100ML BAG 100 ML IV SCH ×2 (07:48→20:57)
[2022-03-24] MEDS: magnesium oxide 400mg tablet OGT SCH (07:48)
[2022-03-24] MEDS: lisinopril 10 MG tablet OGT SCH (07:48)
[2022-03-24] MEDS: atorvastatin 20mg tablet OGT SCH (07:49)
[2022-03-24] MEDS: MULTIVIT-MIN/FERROUS GLUCONATE 9 MG/15 ML LIQUID OGT SCH (07:49)
[2022-03-24] MEDS: gabapentin 300mg capsule OGT SCH (07:49)
--- NOTE | 2022-03-24 08:00 | NUR ---
Dr. Sharp called for an update. He stated that the patient will not have a TAVR on this admission. They want to give her time to go home and heal prior to attempting the TAVR. He stated we can wean to extubate if the solar hot water installer is okay with it, d/c arterial line and central line. He would like the swan left in place at this time.
[2022-03-24] MEDS ORDERED: furosemide 20 MG/2 ML vial IV ONE (08:25)
[2022-03-24] MEDS: hydrALAZINE 20mg/ml inj. IV PRN (08:33)
[2022-03-24 08:37] LABS: HEMATOCRIT 26.6 % (35.0-45.0); MEAN CORPUSCULAR HEMOGLOBIN 27.4 PG (27.0-31.0); MEAN CORPUSCULAR HGB CONC 33.9 g/dL (33.0-36.5); MEAN CORPUSCULAR VOLUME 80.8 FL (78-98); MEAN PLATELET VOLUME 10.1 FL (7.4-10.4); PLATELET COUNT 81 X10'3 (140-440); RED CELL DISTRIBUTION WIDTH 15.9 % (11.5-14.5); WHITE BLOOD COUNT 6.6 X10'3 (4.5-11.0)
[2022-03-24 08:50] LABS: ALBUMIN 2.2 G/DL (3.4-5.0); ANION GAP 8 (8-16); BLOOD UREA NITROGEN 13 MG/DL (7-18); BUN/CREATININE RATIO 28.3 (6.6-38.0); CALCIUM 7.1 MG/DL (8.5-10.1); CHLORIDE 114 MMOL/L (99-107); CREATININE 0.46 MG/DL (0.40-0.90); GLUCOSE 111 MG/DL (70-104); POTASSIUM 3.7 MMOL/L (3.5-5.1); SODIUM 141 MMOL/L (135-145); TOTAL CARBON DIOXIDE 19.2 MMOL/L (24-32); eGFR > 90 ML/MIN
[2022-03-24] MEDS: acetaminophen 325mg tablet OGT PRN (09:51)
--- NOTE | 2022-03-24 11:10 | NUR ---
Central line and Arterial line in the left groin d/c'd. bleeding stopped. Patient tolerated well.
--- NOTE | 2022-03-24 11:30 | NUR ---
Patient extubated at 1125. Placed on 3L via NC. Patient tolerated well.
[2022-03-24] MEDS ORDERED: metoclopramide 5 mg/ml inj IV ONE (12:35)
--- NOTE | 2022-03-24 15:59 | NUR ---
Patient keeps having runs of tachycardia with heart rate in the 140s. MD notified. Orders for 12 lead EKG, one time IVP of 5 of Cardizem, and a BMP with mg draw.
[2022-03-24] MEDS ORDERED: diltiazem 5mg/ml 5ml inj. IV ONE ×2 (16:05→16:06)
[2022-03-24 16:08] LABS: ALBUMIN 2.8 G/DL (3.4-5.0); ANION GAP 11 (8-16); BLOOD UREA NITROGEN 10 MG/DL (7-18); BUN/CREATININE RATIO 15.9 (6.6-38.0); CALCIUM 7.6 MG/DL (8.5-10.1); CHLORIDE 109 MMOL/L (99-107); CREATININE 0.63 MG/DL (0.40-0.90); GLUCOSE 171 MG/DL (70-104); MAGNESIUM 1.8 MG/DL (1.5-2.4); POTASSIUM 3.6 MMOL/L (3.5-5.1); SODIUM 141 MMOL/L (135-145); eGFR 90 ML/MIN
[2022-03-24] MEDS ORDERED: magnesium 4gm in 100ml NS 100 ML IV PRN (16:30)
[2022-03-24] MEDS ORDERED: magnesium 2GM in 50ml NS 50 ML IV PRN (16:30)
[2022-03-24] MEDS: potassium CL 10mEq/100ml bag 100 ML IV PRN ×3 (16:32→19:44)
--- NOTE | 2022-03-24 17:15 | NUR ---
Cardizem IVP helped patient convert back into NSR with HR in the 70s. Dr. Shaw called and he was asked if he would like to replace electrolytes to cardiac protocol and he said yes. He was also asked about cutting the D5NS back to help with the patients blood sugar and fluid status. He stated to change the rate to 50ml/hr.
--- NOTE | 2022-03-24 18:30 | NUR ---
Problems reprioritized. Patient report given, questions answered & plan of care reviewed with Esteban RN.
[2022-03-25] VITALS (24 sets, daily range): BP systolic 94–163; BP diastolic 36–78
[2022-03-25] MEDS: meropenem inj 500 MG in normal saline 100ml IV soln 100 ML IV SCH ×4 (02:00→19:25)
[2022-03-25] MEDS: hydrALAZINE 20mg/ml inj. IV PRN ×2 (05:35→19:22)
[2022-03-25] MEDS ORDERED: metoprolol tartrate 1mg/ml inj IV ONE ×2 (06:04→06:05)
[2022-03-25] MEDS ORDERED: nitroGLYCERIN 0.4mg SUBLingual tab SL ONE (06:04)
[2022-03-25] MEDS ORDERED: nitroGLYCERIN 0.4mg SUBLingual tab SL PRN (06:05)
[2022-03-25 06:11] LABS: BASOPHILS % (AUTO) 0.2 % (0-1); EOSINOPHILS # (AUTO) 0.1 X10'3 (0-0.9); EOSINOPHILS % (AUTO) 0.7 % (0-6); HEMATOCRIT 28.5 % (35.0-45.0); HEMOGLOBIN 9.7 g/dl (12.0-16.0); LYMPHOCYTES # (AUTO) 0.8 X10'3 (1.1-4.8); LYMPHOCYTES % (AUTO) 9.1 % (21-51); MEAN CORPUSCULAR HEMOGLOBIN 27.9 PG (27.0-31.0); MEAN CORPUSCULAR HGB CONC 34.1 g/dL (33.0-36.5); MEAN CORPUSCULAR VOLUME 81.7 FL (78-98); MEAN PLATELET VOLUME 10.8 FL (7.4-10.4); MONOCYTES # (AUTO) 0.6 X10'3 (0-0.9); MONOCYTES % (AUTO) 6.6 % (2-12); NEUTROPHILS # (AUTO) 7.3 X10'3 (1.8-7.7); NEUTROPHILS % (AUTO) 83.4 % (42-75); PLATELET COUNT 84 X10'3 (140-440); RED BLOOD COUNT 3.49 X10'6 (4.20-5.60); RED CELL DISTRIBUTION WIDTH 16.3 % (11.5-14.5); WHITE BLOOD COUNT 8.8 X10'3 (4.5-11.0)
[2022-03-25 06:16] LABS: APTT 30 SECONDS (22-32)
[2022-03-25 06:23] LABS: ALANINE AMINOTRANSFERASE 21 U/L (12-78); ALBUMIN 2.5 G/DL (3.4-5.0); ALBUMIN/GLOBULIN RATIO 0.8 (1.1-1.5); ALKALINE PHOSPHATASE 82 IU/L (46-116); ANION GAP 7 (8-16); ASPARTATE AMINO TRANSFERASE 27 U/L (10-37); BILIRUBIN,TOTAL 0.9 MG/DL (0.1-1.0); BLOOD UREA NITROGEN 9 MG/DL (7-18); BUN/CREATININE RATIO 16.1 (6.6-38.0); CALCIUM 7.7 MG/DL (8.5-10.1); CHLORIDE 111 MMOL/L (99-107); CREATININE 0.56 MG/DL (0.40-0.90); GLUCOSE 112 MG/DL (70-104); POTASSIUM 4.1 MMOL/L (3.5-5.1); SODIUM 141 MMOL/L (135-145); TOTAL CARBON DIOXIDE 23.2 MMOL/L (24-32); TOTAL PROTEIN 5.5 G/DL (6.4-8.2); eGFR > 90 ML/MIN
[2022-03-25] MEDS: dextrose 5%-normal saline 1,000 ML IV SCH (07:00)
[2022-03-25] MEDS: gabapentin 300mg capsule OGT SCH (08:00)
[2022-03-25] MEDS: pantoprazole 40MG/NS 100ML BAG 100 ML IV SCH ×2 (08:28→19:24)
[2022-03-25] MEDS: atorvastatin 20mg tablet OGT SCH (08:32)
[2022-03-25] MEDS: magnesium oxide 400mg tablet OGT SCH (08:32)
[2022-03-25] MEDS: cholecalciferol (vitamin D3) 1,000 unit (25mcg) tablet OGT SCH (08:32)
[2022-03-25] MEDS: multivitamins, therapeutics tablet PO SCH (08:32)
[2022-03-25] MEDS: metoprolol tartrate 25mg tablet PO SCH ×2 (08:32→19:22)
[2022-03-25] MEDS: lisinopril 10 MG tablet OGT SCH (08:33)
[2022-03-25 09:12] LABS: ANISOCYTOSIS 1+; PLATELET ESTIMATE DECREASED
--- NOTE | 2022-03-25 18:20 | NUR ---
Patient in room CICU 2012. I have received report from Kasi and had the opportunity to ask questions and assume patient care.
[2022-03-25] MEDS ORDERED: gabapentin 100mg capsule PO SCH (21:00)
[2022-03-26] VITALS: BP 134/46
[2022-03-26 01:00] VITALS: BP 124/43
--- NOTE | 2022-03-26 01:15 | NUR ---
Problems reprioritized. Patient report given, questions answered & plan of care reviewed with Guillermo.
--- NOTE | 2022-03-26 01:40 | NUR ---
Patient transferred to U 3027A via . Patient stable on telemetry and RA. No distress noted.
[2022-03-26 02:00] VITALS: BP 160/61
[2022-03-26] MEDS: meropenem inj 500 MG in normal saline 100ml IV soln 100 ML IV SCH ×2 (02:12→09:06)
[2022-03-26] MEDS: fentaNYL/PF inj 2,500 MCG in normal saline 250ml IV soln 200 ML IV SCH (03:48)
[2022-03-26 06:00] VITALS: BP 160/59
--- NOTE | 2022-03-26 07:24 | NUR ---
Patient in room PCU 3020I. I have received report from JAZMINE ROWLAND and had the opportunity to ask questions and assume patient care.
[2022-03-26] MEDS ORDERED: pantoprazole 40mg Tablet.DR PO SCH (07:30)
[2022-03-26 08:53] LABS: BASOPHILS % (AUTO) 0.4 % (0-1); EOSINOPHILS % (AUTO) 0.3 % (0-6); HEMATOCRIT 30.3 % (35.0-45.0); HEMOGLOBIN 10.2 g/dl (12.0-16.0); MEAN CORPUSCULAR HEMOGLOBIN 27.9 PG (27.0-31.0); MEAN CORPUSCULAR HGB CONC 33.5 g/dL (33.0-36.5); MEAN PLATELET VOLUME 11.2 FL (7.4-10.4); MONOCYTES # (AUTO) 0.7 X10'3 (0-0.9); MONOCYTES % (AUTO) 7.2 % (2-12); NEUTROPHILS # (AUTO) 7.6 X10'3 (1.8-7.7); NEUTROPHILS % (AUTO) 81.1 % (42-75); PLATELET COUNT 122 X10'3 (140-440); RED BLOOD COUNT 3.65 X10'6 (4.20-5.60); RED CELL DISTRIBUTION WIDTH 15.6 % (11.5-14.5); WHITE BLOOD COUNT 9.4 X10'3 (4.5-11.0)
[2022-03-26 09:02] LABS: APTT 27 SECONDS (22-32)
[2022-03-26] MEDS: cholecalciferol (vitamin D3) 1,000 unit (25mcg) tablet OGT SCH (09:11)
[2022-03-26] MEDS: lisinopril 10 MG tablet OGT SCH (09:14)
[2022-03-26] MEDS: magnesium oxide 400mg tablet OGT SCH (09:14)
[2022-03-26] MEDS: atorvastatin 20mg tablet OGT SCH (09:15)
[2022-03-26] MEDS: multivitamins, therapeutics tablet PO SCH (09:15)
[2022-03-26] MEDS: metoprolol tartrate 25mg tablet PO SCH (09:16)
[2022-03-26 09:19] LABS: ALANINE AMINOTRANSFERASE 25 U/L (12-78); ALBUMIN 2.9 G/DL (3.4-5.0); ALBUMIN/GLOBULIN RATIO 0.9 (1.1-1.5); ALKALINE PHOSPHATASE 97 IU/L (46-116); ASPARTATE AMINO TRANSFERASE 28 U/L (10-37); BILIRUBIN,TOTAL 1.1 MG/DL (0.1-1.0); BLOOD UREA NITROGEN 13 MG/DL (7-18); BUN/CREATININE RATIO 23.2 (6.6-38.0); CREATININE 0.56 MG/DL (0.40-0.90); GLUCOSE 101 MG/DL (70-104); MAGNESIUM 2.3 MG/DL (1.5-2.4); POTASSIUM 3.4 MMOL/L (3.5-5.1); SODIUM 143 MMOL/L (135-145); TOTAL CARBON DIOXIDE 23.9 MMOL/L (24-32); TOTAL PROTEIN 6.2 G/DL (6.4-8.2); eGFR > 90 ML/MIN
[2022-03-26 09:22] LABS: ANION GAP 11 (8-16); CHLORIDE 108 MMOL/L (99-107)
[2022-03-26] MEDS ORDERED: acetaminophen 325mg tablet PO PRN ×2 (09:22)
[2022-03-26] MEDS ORDERED: atorvastatin 20mg tablet PO SCH (09:22)
[2022-03-26] MEDS ORDERED: lisinopril 10 MG tablet PO SCH (09:23)
[2022-03-26] MEDS ORDERED: magnesium hydroxide 30ml (MOM) UD suspension PO PRN (09:23)
[2022-03-26] MEDS ORDERED: cholecalciferol (vitamin D3) 1,000 unit (25mcg) tablet PO SCH (09:23)
[2022-03-26] MEDS ORDERED: magnesium oxide 400mg tablet PO SCH (09:24)
[2022-03-26 11:00] VITALS: BP 146/50
[2022-03-26] MEDS ORDERED: LOP25T PO (11:12)
[2022-03-26] MEDS ORDERED: POTA-207 PO (11:12)
[2022-03-26] MEDS ORDERED: CEFD300C3 PO (11:12)
[2022-03-26] MEDS ORDERED: VANCOMYCIN LEVEL IV ONE (11:30)
[2022-03-26 15:00] VITALS: BP 136/59
[2022-03-26] MEDS ORDERED: cefepime 1GM/NS ADD-VANTAGE 100 ML IV SCH (16:00)
[2022-03-26] MEDS ORDERED: ALPRAZolam 0.25mg tablet PO PRN (16:25)
--- NOTE | 2022-03-26 19:42 | NUR ---
PATIENT STABLE AND APPROPRIATE FOR DISCHARGE, IV REMOVED, TELE REMOVED, EDUCATION GIVEN, NEW MEDS E-SCRIPTED TO PREFERRED PHARMACY, ALL BELONGINGS SENT WITH PATIENT, WALKER DELIVERED FROM [facility], HOME HEALTH SET UP, PATIENT TAKEN TO LOBBY BY WHEELCHAIR WHERE SON WILL TAKE PATIENT HOME
== END 2022-03-26 16:16 | disposition home health service (06) | DRG 871 ==
LOC: SSTAY O 14:19 → CICU 2S 20:50 → UNDOADMIN 20:50 → CICU 2S 20:52 → PCU 3S 03-26 01:45
PROVIDERS: ADMIT Internal Medicine Interventional Cardiology; ATTEND Internal Medicine Interventional Cardiology
PROC: 4A023N6 Measurement of Cardiac Sampling and Pressure, Right Heart, Percutaneous Approach (ICD-10-PCS; principal; 2022-03-22)
PROC: B2111ZZ Fluoroscopy of Multiple Coronary Arteries using Low Osmolar Contrast (ICD-10-PCS; 2022-03-22)
PROC: 5A1945Z Respiratory Ventilation, 24-96 Consecutive Hours (ICD-10-PCS; 2022-03-22)
PROC: 0BH17EZ Insertion of Endotracheal Airway into Trachea, Via Natural or Artificial Opening (ICD-10-PCS; 2022-03-22)
PROC: 30233N1 Transfusion of Nonautologous Red Blood Cells into Peripheral Vein, Percutaneous Approach (ICD-10-PCS; 2022-03-22)
PROC: 30233M1 Transfusion of Nonautologous Plasma Cryoprecipitate into Peripheral Vein, Percutaneous Approach (ICD-10-PCS; 2022-03-22)
DX: A41.9 Sepsis, unspecified organism (principal); I26.99 Other pulmonary embolism without acute cor pulmonale; J96.01 Acute respiratory failure with hypoxia; I50.32 Chronic diastolic (congestive) heart failure; J44.1 Chronic obstructive pulmonary disease with (acute) exacerbation; R04.2 Hemoptysis; R04.89 Hemorrhage from other sites in respiratory passages; I35.0 Nonrheumatic aortic (valve) stenosis; D69.6 Thrombocytopenia, unspecified; E78.5 Hyperlipidemia, unspecified; I25.10 Atherosclerotic heart disease of native coronary artery without angina pectoris; E87.6 Hypokalemia; I48.0 Paroxysmal atrial fibrillation; F17.200 Nicotine dependence, unspecified, uncomplicated; E78.49 Other hyperlipidemia; G89.29 Other chronic pain; G62.9 Polyneuropathy, unspecified; M54.9 Dorsalgia, unspecified; B19.20 Unspecified viral hepatitis C without hepatic coma; I11.0 Hypertensive heart disease with heart failure; Z79.899 Other long term (current) drug therapy; Z85.828 Personal history of other malignant neoplasm of skin; Z86.73 Personal history of transient ischemic attack (TIA), and cerebral infarction without residual deficits; Z90.710 Acquired absence of both cervix and uterus; Z88.5 Allergy status to narcotic agent; Z88.0 Allergy status to penicillin; Z86.16 Personal history of COVID-19
CPT/HCPCS: 36415; 36430; 36600; 71045; 80048; 80053; 80061; 82803; 82948; 83605; 83735; 85008; 85018; 85025; 85027; 85379; 85384; 85610; 85730; 86885; 86900; 86901; 86920; 87040; 87070; 87081; 92508; 92616; 93005; 93451; 94002; 94003; 94760; 97110; 97161; 97530; 99152; 99153; A4333; A4615; A4620; A5120; A6196; A6213; A6258; A6449; C1751; C1758; C1769; C1894; C9113; G0378; J0360; J1644; J1940; J2185; J2250; J2405; J2704; J2765; J3010; J3370; J3480; J3490; J7030; J7040; J7042; J7050; J7120; P9012; P9016; Q0163; Q9967

== ENCOUNTER 2023-06-23 07:43 | Emergency (ER) | payer MEDICARE, OTHER ==
[2023-06-23] VITALS (11 sets, daily range): BP systolic 170–196; BP diastolic 53–71; PULSE 68–97; RESP 14–19; TEMP 98–99.2; O2SAT 99
[~2023-06-23] VITALS: Ht 147.3 cm; Wt 46.8 kg
[~2023-06-23 07:43] MED LIST changes: -ACET-890 PO; +GABA-530 PO; -GABA300C PO; -vitamin D PO
[2023-06-23 08:29] LABS: BASOPHILS # (AUTO) 0.1 X10'3 (0-0.2); BASOPHILS % (AUTO) 0.9 % (0-1); EOSINOPHILS # (AUTO) 0.3 X10'3 (0-0.9); EOSINOPHILS % (AUTO) 3.7 % (0-6); LYMPHOCYTES # (AUTO) 1.4 X10'3 (1.1-4.8); LYMPHOCYTES % (AUTO) 18.6 % (21-51); MEAN CORPUSCULAR HGB CONC 30.7 g/dL (33.0-36.5); MEAN CORPUSCULAR VOLUME 71.7 FL (78-98); MEAN PLATELET VOLUME 9.9 FL (7.4-10.4); MONOCYTES # (AUTO) 0.4 X10'3 (0-0.9); MONOCYTES % (AUTO) 5.9 % (2-12); NEUTROPHILS # (AUTO) 5.3 X10'3 (1.8-7.7); NEUTROPHILS % (AUTO) 70.9 % (42-75); PLATELET COUNT 259 X10'3 (140-440); RED BLOOD COUNT 2.97 X10'6 (4.20-5.60); RED CELL DISTRIBUTION WIDTH 18.4 % (11.5-14.5); WHITE BLOOD COUNT 7.4 X10'3 (4.5-11.0)
[2023-06-23 08:31] LABS: HEMOGLOBIN 6.5 g/dl (12.0-16.0)
[2023-06-23 08:32] LABS: HEMATOCRIT 21.3 % (35.0-45.0)
[2023-06-23 08:44] LABS: ALANINE AMINOTRANSFERASE 30 U/L (12-78); ALBUMIN 3.8 G/DL (3.4-5.0); ALBUMIN/GLOBULIN RATIO 1.4 (1.1-1.5); ALKALINE PHOSPHATASE 96 IU/L (46-116); ANION GAP 7 (8-16); ASPARTATE AMINO TRANSFERASE 32 U/L (10-37); BILIRUBIN,TOTAL 0.5 MG/DL (0.1-1.0); BLOOD UREA NITROGEN 16 MG/DL (7-18); BUN/CREATININE RATIO 20.8 (10.0-20.0); CHLORIDE 106 MMOL/L (99-107); CREATININE 0.77 MG/DL (0.40-0.90); GLUCOSE 100 MG/DL (70-104); POTASSIUM 3.9 MMOL/L (3.5-5.1); SODIUM 138 MMOL/L (135-145); TOTAL CARBON DIOXIDE 24.8 MMOL/L (24-32); TOTAL PROTEIN 6.6 G/DL (6.4-8.2); eCRCL 33 ML/MIN; eGFR 71 ML/MIN
[2023-06-23 08:52] LABS: PRO BRAIN NATRIURETIC PEPTIDE 1572 PG/ML (0-450)
--- NOTE | 2023-06-23 10:05 | NUR ---
lab called, blood ready
--- NOTE | 2023-06-23 10:23 | NUR ---
echo is just finishing at bedside.
== END 2023-06-23 17:57 | disposition home or self-care (01) ==
LOC: ER 07:44
DX: D64.89 Other specified anemias (principal); Z88.0 Allergy status to penicillin; Z88.5 Allergy status to narcotic agent; Z79.899 Other long term (current) drug therapy
CPT/HCPCS: 36415; 36430; 71045; 80053; 83880; 84484; 85025; 86885; 86900; 86901; 86920; 93005; 93306; 99291; 99292; A6258; J7030; P9016

== ENCOUNTER 2024-09-18 07:49 | Emergency (ER) | payer MEDICARE, OTHER ==
[~2024-09-18] VITALS: Ht 149.9 cm; Wt 46.8 kg
[2024-09-18 09:17] LABS: BASOPHILS % (AUTO) 0.6 % (0-1); EOSINOPHILS # (AUTO) 0.1 X10'3 (0-0.9); EOSINOPHILS % (AUTO) 1.6 % (0-6); HEMATOCRIT 23.9 % (35.0-45.0); HEMOGLOBIN 7.4 g/dl (12.0-16.0); LYMPHOCYTES # (AUTO) 0.7 X10'3 (1.1-4.8); LYMPHOCYTES % (AUTO) 11.5 % (21-51); MEAN CORPUSCULAR HEMOGLOBIN 22.2 PG (27.0-31.0); MEAN CORPUSCULAR HGB CONC 30.8 g/dL (33.0-36.5); MEAN CORPUSCULAR VOLUME 72.1 FL (78-98); MONOCYTES # (AUTO) 0.3 X10'3 (0-0.9); MONOCYTES % (AUTO) 5.8 % (2-12); NEUTROPHILS # (AUTO) 4.8 X10'3 (1.8-7.7); NEUTROPHILS % (AUTO) 80.5 % (42-75); PLATELET COUNT 270 X10'3 (140-440); RED BLOOD COUNT 3.32 X10'6 (4.20-5.60); RED CELL DISTRIBUTION WIDTH 19.1 % (11.5-14.5)
[2024-09-18 09:34] LABS: ALANINE AMINOTRANSFERASE 23 U/L (12-78); ALBUMIN 3.4 G/DL (3.4-5.0); ALBUMIN/GLOBULIN RATIO 1.1 (1.1-1.5); ALKALINE PHOSPHATASE 102 IU/L (46-116); ANION GAP 10 (8-16); ASPARTATE AMINO TRANSFERASE 24 U/L (10-37); BILIRUBIN,TOTAL 0.5 MG/DL (0.1-1.0); BLOOD UREA NITROGEN 18 MG/DL (7-18); BUN/CREATININE RATIO 22.2 (10.0-20.0); CALCIUM 7.9 MG/DL (8.5-10.1); CHLORIDE 110 MMOL/L (99-107); CREATININE 0.81 MG/DL (0.40-0.90); GLUCOSE 111 MG/DL (70-104); POTASSIUM 4.3 MMOL/L (3.5-5.1); SODIUM 144 MMOL/L (135-145); TOTAL CARBON DIOXIDE 24.2 MMOL/L (24-32); TOTAL PROTEIN 6.4 G/DL (6.4-8.2); eCRCL 33 ML/MIN; eGFR 67 ML/MIN
[2024-09-18 11:00] VITALS: BP 158/48; PULSE 60; RESP 16; TEMP 98.1
[2024-09-18 11:15] VITALS: BP 158/39; PULSE 61; RESP 16; TEMP 98
[2024-09-18 12:00] VITALS: BP 171/44; PULSE 60; RESP 16; TEMP 98
[2024-09-18 13:00] VITALS: BP 182/50; PULSE 59; RESP 16; TEMP 98.1
[2024-09-18 14:03] VITALS: O2SAT 94
[2024-09-18 14:05] VITALS: BP 129/85; PULSE 62; RESP 16; TEMP 98.1
[2024-09-18] MEDS: cloNIDine 0.1 mg tablet PO STA (14:19)
== END 2024-09-18 14:20 | disposition home or self-care (01) ==
LOC: ER 07:49
DX: D64.9 Anemia, unspecified (principal); I10 Essential (primary) hypertension; Z86.73 Personal history of transient ischemic attack (TIA), and cerebral infarction without residual deficits; Z95.2 Presence of prosthetic heart valve; Z88.0 Allergy status to penicillin; Z88.5 Allergy status to narcotic agent; Z88.8 Allergy status to other drugs, medicaments and biological substances
CPT/HCPCS: 36415; 36430; 80053; 84484; 85025; 86885; 86900; 86901; 86920; 93005; 99285; J7040; P9016

== ENCOUNTER 2024-11-02 20:13 | Emergency (ER) | payer MEDICARE, OTHER ==
[~2024-11-02] VITALS: Ht 149.9 cm; Wt 47.0 kg
[2024-11-02 22:00] VITALS: BP 184/79; PULSE 67; RESP 16; O2SAT 100
[2024-11-02] MEDS: LIDOcaine 1% W/epiNEPHrine 1:100,000 20ml vial SQ ONE (22:22)
[2024-11-02 23:10] VITALS: TEMP 97.7
== END 2024-11-02 23:11 | disposition home or self-care (01) ==
LOC: ER 20:14
DX: S01.81XA Laceration without foreign body of other part of head, initial encounter (principal); I10 Essential (primary) hypertension; G89.29 Other chronic pain; D64.9 Anemia, unspecified; Z79.899 Other long term (current) drug therapy; Z72.89 Other problems related to lifestyle; Z86.73 Personal history of transient ischemic attack (TIA), and cerebral infarction without residual deficits; Z88.0 Allergy status to penicillin; Z88.5 Allergy status to narcotic agent; W22.8XXA Striking against or struck by other objects, initial encounter; Y93.89 Activity, other specified; Y92.89 Other specified places as the place of occurrence of the external cause; Y99.8 Other external cause status
CPT/HCPCS: 12014; 70450; 93005; 99284; A6402; J7030; Z7610; A6449